=== PATIENT | female | born 1975 | race Caucasian/White ===

== ENCOUNTER 2018-05-28 17:46 | Emergency (ER) | payer BC, OTHER ==
[2018-05-28 18:08] VITALS: BP 127/81; RESP 18; TEMP 98.7
[2018-05-28] MEDS ORDERED: IPRATROPIUM-ALBUTEROL 3 ML NEB INHALATION STA (19:00)
[2018-05-28] MEDS ORDERED: methylPREDNISolone SOD SUCCI 125 MG/2 ML VIAL IM STA (19:01)
--- NOTE | 2018-05-28 19:04 | ED ---
General Adult HPI - General Chief complaint: Upper Respiratory Infection Stated complaint: Cough Time Seen by Provider: 05/28/18 18:55 Source: patient, RN notes reviewed Mode of arrival: ambulatory Limitations: no limitations - History of Present Illness Initial comments: Patient is a 42 year old female with complaint of nonproductive cough for 2 weeks. She also complains of fevers, chills and feeling tired. Denies history of asthma, but she reports having an inhaler. Denies runny nose, congestion, eye redness or drainage, ear pain or drainage, sore throat, nausea or vomiting, diarrhea or constipation, abdominal pain, back pain, or any other complaints. - Related Data Home Medications Medication Instructions Recorded Confirmed Fexofenadine HCl [Leana Allergy] 180 mg PO DAILY 08/17/15 08/18/15 Fluticasone Nasal [place] [Flonase 2 spr EA NOSTRIL DAILY 08/17/15 08/18/15 Nasal [place]] Ibuprofen [Motrin] 800 mg PO Q8HR PRN 08/17/15 08/17/15 Lansoprazole [Prevacid] 15 mg PO DAILY 08/17/15 08/18/15 Methocarbamol [Robaxin] 750 mg PO TID PRN 08/17/15 08/18/15 Previous Rx's Medication Instructions Recorded Azithromycin [Zithromax Z-pack] 0 mg PO DIRECTED #6 tab 05/28/18 Allergies Allergy/AdvReac Type Severity Reaction Status Date / Time adhesive tape Allergy skin Verified 05/28/18 18:07 irritation, paper tape is ok Review of Systems ROS Statement: Those systems with pertinent positive or pertinent negative responses have been documented in the HPI. ROS Other: All systems not noted in ROS Statement are negative. Past Medical History Past Medical History: GERD/Reflux Additional Past Medical History / Comment(s): currently having intermittent abd cramping History of Any Multi-Drug Resistant Organisms: None Reported Past Surgical History: Section, Tubal Ligation Additional Past Surgical History / Comment(s): breast reduction,cyst removed from cyst,eye surgery as a child Past Anesthesia/Blood Transfusion Reactions: Motion Sickness, Postoperative Nausea & Vomiting (PONV) Additional Past Anesthesia/Blood Transfusion Reaction / Comment(s): no hx blood transfusion Past Psychological History: Anxiety, Depression Smoking Status: Never smoker Past Alcohol Use History: None Reported Past Drug Use History: None Reported - Past Family History Mother Family Medical History: Cancer Father History Unknown: Yes General Exam Limitations: no limitations General appearance: alert, in no apparent distress Head exam: Present: atraumatic, normocephalic Eye exam: Present: normal appearance, PERRL ENT exam: Present: normal oropharynx, TM's normal bilaterally, normal external ear exam Neck exam: Present: normal inspection, other (No lymphadenopathy.) Respiratory exam: Present: wheezes Cardiovascular Exam: Present: regular rate, normal rhythm Neurological exam: Present: alert, oriented X3 Psychiatric exam: Present: normal affect, normal mood Skin exam: Present: warm, dry Course Vital Signs 05/28/18 05/28/18 05/28/18 18:05 19:20 19:36 Temperature 98.7 F Pulse Rate 88 80 84 Respiratory 18 Rate Blood Pressure 127/81 O2 Sat by Pulse 100 Oximetry Medical Decision Making - Medical Decision Making Given Duoneb, solu-medrol and decadron here. Upon reexamination, wheeze is decreased. She feels that she is breathing well and would like to go home; she does not want another breathing treatment. Patient does not need a prescription for an inhaler. Will discharge with a prescription for a Z-pack. Case discussed in detail with Dr. Cifuentes. Disposition Clinical Impression: Bronchitis Disposition: HOME SELF-CARE Condition: Good Instructions: Wheezing (ED) Additional Instructions: Follow up with your PCP in 1-2 days. Return to the ER if your symptoms worsen or any other concerns. Prescriptions: Azithromycin [Zithromax Z-pack] 0 mg PO DIRECTED #6 tab Is patient prescribed a controlled substance at d/c from ED?: No Referrals: Shyla Carson MD [Primary Care Provider] - 1-2 days Time of Disposition: 20:12
--- NOTE | 2018-05-28 19:20 | XR ---
EXAMINATION TYPE: XR chest 2V DATE OF EXAM: 05/28/2018 COMPARISON: NONE HISTORY: Cough and congestion TECHNIQUE: Frontal and lateral views of the chest are obtained. FINDINGS: Heart and mediastinum are normal. Lungs are clear. Diaphragm is normal. Bony thorax appear s normal. IMPRESSION: Normal chest
[2018-05-28 19:37] VITALS: PULSE 84
[2018-05-28] MEDS ORDERED: DEXAMETHASONE 4 MG TAB PO STA (19:38)
== END 2018-05-28 20:19 | disposition home or self-care (01) ==
LOC: EC 17:46
DX: J40 Bronchitis, not specified as acute or chronic (principal); K21.9 Gastro-esophageal reflux disease without esophagitis; Z91.048 Other nonmedicinal substance allergy status; Z79.51 Long term (current) use of inhaled steroids; Z79.899 Other long term (current) drug therapy
CPT/HCPCS: 94640; 71046; 99283; 96372; J8540; J2930

== ENCOUNTER → 2019-11-03 | Outpatient (CLI) | payer BC ==
--- NOTE | 2019-11-03 09:41 | MR ---
EXAMINATION TYPE: MR shoulder LT wo con DATE OF EXAM: 11/03/2019 COMPARISON: Outside radiographs 08/10/2019 HISTORY: 44-year-old female M25.512, Pain and Loss of Movement in Left Shoulder over 2 years, post fa ll and catching self with Left Arm. TECHNIQUE: Multiplanar, multisequence imaging of the left shoulder is performed without contrast. FINDINGS: Some intrinsic signal within the intracapsular portion of the long head biceps tendon suggesting tend inosis. The extracapsular portion remains appropriately situated along the bicipital groove. Mild intermediate signal within the subscapularis tendon suggesting mild tendinosis which otherwise r emains intact. Severe degenerative joint space narrowing with marginal spurring, capsular hypertrophy, and subchondr al marrow edema and mild periarticular soft tissue edema at the AC joint. Trace fluid within the subdeltoid bursa. Marked thickening and inhomogeneous signal throughout the supraspinatus tendon with a small intrasubs tance tear present of the mid supraspinatus tendon measuring 7 mm long and 9 mm AP dimension. No high -grade partial or full-thickness tear is identified. No atrophy of the rotator cuff musculature. The glenohumeral joint appears intact. Minimal early degenerative subchondral signal changes present along the anterior superior aspect of the glenoid. No significant joint effusion. Some degenerative blunting of the superior labrum. No discrete labral tear given nonarthrographic maryann hnique and no paralabral cyst. No Hill-Sachs deformity or os acromiale. Patchy red marrow is present in the seen in setting of anemi a, obesity, smoking, and chronic disease. IMPRESSION: 1. Moderate to marked supraspinatus tendinosis with a small 7 x 9 mm intrasubstance tear at the footp rint of the mid supraspinatus tendon. No high-grade partial or full-thickness rotator cuff tear. 2. Minimal early degenerative subchondral signal change along the anterior superior aspect of the gle noid. 3. Moderate to severe AC joint osteoarthrosis. Subchondral bony and periarticular soft tissue edema c ould reflect superimposed mild AC joint sprain or an acute exacerbation of OA.
== END | disposition home or self-care (01) ==
LOC: RADMRIMAIN 08:08
PROVIDERS: ATTEND Orthopaedic Surgery
DX: M19.012 Primary osteoarthritis, left shoulder (principal); M75.102 Unspecified rotator cuff tear or rupture of left shoulder, not specified as traumatic